=== PATIENT | male | born 1990 | race American Indian/Alaskan Native ===

== ENCOUNTER 2016-10-31 08:04 | Emergency (ER) | payer OTHER ==
[2016-10-31 08:23] VITALS: BP 128/80
[2016-10-31] MEDS ORDERED: DECADRON PO ONE (09:57)
[2016-10-31] MEDS ORDERED: LIDOCAINE VISCOUS 2% PO ONE (09:57)
[2016-10-31] MEDS ORDERED: TORADOL IM ONE (09:57)
--- NOTE | 2016-10-31 09:57 | Emergency Department Report ---
ED ENT HPI - General Chief complaint: Sore Throat Stated complaint: INFLAMED TONSILS/DIFF BREATHING Time Seen by Provider: 10/31/16 09:56 Source: patient Mode of arrival: Ambulatory Limitations: No Limitations - History of Present Illness Initial comments: Patient reports left side neck pain, swelling and redness to his uvula that started this morning MD complaint: sore throat Onset/Timin -: hour(s) Location: throat Severity: mild Severity scale (0 -10): 2 Quality: aching Consistency: constant Improves with: none Worsens with: swallowing Context-Epistaxis: other (none) Context- Dental: other (none) Context- Ear: other (none) Associated Symptoms: pain with swallowing, sore throat. denies: fever, cough, gum swelling, toothache, tinnitus, hearing loss, discharge from ear, rhinorrhea - Related Data Previous Rx's Medication Instructions Recorded Last Taken Type Amoxicillin [Amoxicillin TAB] 875 mg PO BID #20 tablet 10/31/16 Unknown Rx Ibuprofen [Motrin 800 MG tab] 800 mg PO Q8HR PRN #30 tablet 10/31/16 Unknown Rx Allergies Allergy/AdvReac Type Severity Reaction Status Date / Time No Known Allergies Allergy Verified 10/31/16 08:19 ED Dental HPI - General Chief complaint: Sore Throat Stated complaint: INFLAMED TONSILS/DIFF BREATHING Source: patient Mode of arrival: Ambulatory Limitations: No Limitations - Related Data Previous Rx's Medication Instructions Recorded Last Taken Type Amoxicillin [Amoxicillin TAB] 875 mg PO BID #20 tablet 10/31/16 Unknown Rx Ibuprofen [Motrin 800 MG tab] 800 mg PO Q8HR PRN #30 tablet 10/31/16 Unknown Rx Allergies Allergy/AdvReac Type Severity Reaction Status Date / Time No Known Allergies Allergy Verified 10/31/16 08:19 ED Review of Systems ROS: Stated complaint: INFLAMED TONSILS/DIFF BREATHING Other details as noted in HPI Constitutional: denies: chills, diaphoresis, fever, malaise, weakness Eyes: denies: eye pain, vision change ENT: throat pain. denies: ear pain, dental pain, hearing loss, epistaxis, congestion Respiratory: denies: cough, orthopnea, shortness of breath, SOB with exertion, SOB at rest, stridor, wheezing Cardiovascular: denies: chest pain, palpitations, dyspnea on exertion, orthopnea , edema, syncope, paroxysmal nocturnal dyspnea Musculoskeletal: other (left neck pain) ED Past Medical Hx - Past Medical History Previous Medical History?: No - Surgical History Additional Surgical History: RIGHT RETINA RE ATTACHMENT - Social History Smoking Status: Never Smoker Substance Use Type: None - Medications Home Medications: Home Medications Medication Instructions Recorded Confirmed Last Taken Type Amoxicillin [Amoxicillin TAB] 875 mg PO BID #20 tablet 10/31/16 Unknown Rx Ibuprofen [Motrin 800 MG tab] 800 mg PO Q8HR PRN #30 tablet 10/31/16 Unknown Rx ED Physical Exam - General Limitations: No Limitations General appearance: alert, in no apparent distress - Head Head exam: Present: atraumatic - Eye Eye exam: Present: normal appearance, PERRL, EOMI Pupils: Present: normal accommodation - ENT ENT exam: Present: mucous membranes moist, TM's normal bilaterally, normal external ear exam. Absent: mucous membranes dry - Expanded ENT Exam Expanded Ear exam: Present: normal external inspection. Absent: auricular hematoma, auricular trauma Mouth exam: Present: normal external inspection, tongue normal. Absent: drooling, trismus, muffled voice, tongue elevation, laceration Teeth exam: Present: normal inspection Throat exam: Positive: other (swelling and erythema to uvula). Negative: tonsillar erythema, tonsillomegaly, tonsillar exudate, R peritonsillar mass, L peritonsillar mass - Neck Neck exam: Present: full ROM, lymphadenopathy (left cervical lymph node swelling ). Absent: tenderness, meningismus - Respiratory Respiratory exam: Present: normal lung sounds bilaterally. Absent: respiratory distress, wheezes, rales, rhonchi, stridor, chest wall tenderness, accessory muscle use, decreased breath sounds, prolonged expiratory - Cardiovascular Cardiovascular Exam: Present: regular rate, normal rhythm, normal heart sounds. Absent: systolic murmur, diastolic murmur, rubs, gallop, clicks, JVD, S3, S4 - Neurological Exam Neurological exam: Present: alert, oriented X3, CN II-XII intact, normal gait, reflexes normal. Absent: motor sensory deficit - Skin Skin exam: Present: warm, dry, intact, normal color. Absent: rash ED Course Vital Signs 10/31/16 08:19 Temperature 98.3 F Pulse Rate 82 Respiratory 18 Rate Blood Pressure 128/80 O2 Sat by Pulse 100 Oximetry - Reevaluation(s) Reevaluation #1: 10/31/16 11:28 analgesic, steroids and viscous lidocaine orally ordered ED Medical Decision Making - Lab Data Vital Signs 10/31/16 08:19 Temperature 98.3 F Pulse Rate 82 Respiratory 18 Rate Blood Pressure 128/80 O2 Sat by Pulse 100 Oximetry - Medical Decision Making During the course of ED, laboratory study, analgesic, steroids and viscous lidocaine orally were ordered. The laboratory study was negative for Strep A. Patient reports symptomatic relief from pain after medications were given in the ED. Patient's airway was patent, able to tolerate fluids and no respiratory compromise was noted prior to discharge. He was sent home with empiric oral antibiotic with Amoxicillin and Ibuprofen based on current literature, instructed to follow up with the selective referral in 3-5 days, he verbalized understanding - Differential Diagnosis Uvulitis, Pharyngitis, Peritonsilar Abscess Critical care attestation.: If time is entered above; I have spent that time in minutes in the direct care of this critically ill patient, excluding procedure time. ED Disposition Clinical Impression: Uvulitis Disposition: DISCHARGED TO HOME OR SELFCARE Is pt being admited?: No Does the pt Need Aspirin: No Condition: Stable Instructions: Uvulitis (ED) Additional Instructions: Take medication as directed. Follow up with the selective referral in 3-5 days. Return back to the ED for worsening symptoms or concerns such as unable to swallow or medications or liquids, drooling, difficulty breathing, increased pain or increased swelling Prescriptions: Amoxicillin [Amoxicillin TAB] 875 mg PO BID #20 tablet Ibuprofen [Motrin 800 MG tab] 800 mg PO Q8HR PRN #30 tablet PRN Reason: Pain Referrals: ROBERT WRIGHT MD [Staff Physician] - 3-5 Days DIYA BARRAZA MD [Staff Physician] - 3-5 Days Forms: Work/School Release Form(ED) Time of Disposition: 11:45
== END 2016-10-31 11:46 | disposition home or self-care (01) ==
LOC: ED 08:04
DX: K12.2 Cellulitis and abscess of mouth (principal)
CPT/HCPCS: 87116; 87430; 96372; 99282; J1100; J1885